=== PATIENT | male | born 2000 | race Caucasian/White ===

== ENCOUNTER 2023-10-16 01:07 | Emergency (ER) | payer SELFPAY ==
[2023-10-16 01:28] VITALS: RESP 16; TEMP 97.5
[2023-10-16] MEDS ORDERED: Sodium Chloride 0.9% 1000 ML 1,000 ML IV STA ×2 (01:34→02:50)
[2023-10-16] MEDS ORDERED: Zofran 4 MG/2 ML VIAL IV ONE (01:34)
--- NOTE | 2023-10-16 01:36 | ERPHSYRPT ---
- History of Present Illness Time Seen by Provider: 10/16/23 01:20 Patient Subjective Stated Complaint: pt states he has been having nausea, vomiting, and diarrhea, abd pain since 2199. Triage Nursing Assessment: pt alert and oriented, answers questions approp. pt ambulates into room with steady gait noted. respiraitons nonlabored. skin warm. abd soft, pt reports some tenderness with palpation. bowel sounds hypo x4. frequent vomiting during exam. Physician History: 22 years old male with past medical history of appendectomy, presenting to the emergency room complaining of abdominal pain nausea vomiting and diarrhea that started almost 3 hours prior to arrival to the emergency room. The patient states that he vomited many times, and he had couple of loose bowel movements. He is also having abdominal cramping. He is denying any fever or chills, no urinary symptoms. The patient is not aware of any bad food that he ate that could have triggered his symptoms. Allergies/Adverse Reactions: No Known Drug Allergies Allergy (Verified 10/16/23 01:28) Hx Tetanus, Diphtheria Vaccination/Date Given: Yes Hx Influenza Vaccination/Date Given: No Hx Pneumococcal Vaccination/Date Given: No Immunizations Up to Date: Yes Travel Risk - International Travel Have you traveled outside of the country in past 3 weeks: No - Coronavirus Screening Are you exhibiting any of the following symptoms?: Yes Symptoms: Vomiting/Diarrhea Close contact with a COVID-19 positive Pt in past 14-21 Days: Yes - Vaccine Status Have you recieved a Covid-19 vaccination: No - Review of Systems Constitutional: No Fever, No Chills Eyes: No Symptoms Ears, Nose, & Throat: No Symptoms Respiratory: No Cough, No Dyspnea Cardiac: No Chest Pain, No Edema, No Syncope Abdominal/Gastrointestinal: Abdominal Pain, Nausea, Vomiting, Diarrhea Genitourinary Symptoms: No Dysuria Musculoskeletal: No Back Pain, No Neck Pain Skin: No Rash Neurological: No Dizziness, No Focal Weakness, No Sensory Changes Psychological: No Symptoms Endocrine: No Symptoms All Other Systems: Reviewed and Negative - Past Medical History Pertinent Past Medical History: No ENT History: Other - Past Surgical History Past Surgical History: Yes Gastrointestinal: Appendectomy Musculoskeletal: Orthopedic Surgery Other Surgical History: l elbow - Social History Smoking Status: Former smoker Exposure to second hand smoke: Yes Drug Use: none Patient Lives Alone: No - Nursing Vital Signs Nursing Vital Signs: Initial Vital Signs Temperature 97.5 F 10/16/23 01:14 Pulse Rate 86 10/16/23 01:14 Respiratory Rate 16 10/16/23 01:14 Blood Pressure 156/87 10/16/23 01:14 O2 Sat by Pulse Oximetry 100 10/16/23 01:14 Pain Scale Pain Intensity 5 - Physical Exam General Appearance: no apparent distress, alert Eye Exam: PERRL/EOMI, eyes nml inspection Ears, Nose, Throat Exam: normal ENT inspection, pharynx normal, moist mucous membranes Neck Exam: normal inspection, non-tender, supple, full range of motion Respiratory Exam: normal breath sounds, lungs clear, No respiratory distress Cardiovascular Exam: regular rate/rhythm, normal heart sounds Gastrointestinal/Abdomen Exam: soft, tenderness, No distention, No mass, No guarding, No ecchymosis, No rebound Back Exam: normal inspection, normal range of motion, No CVA tenderness, No vertebral tenderness Extremity Exam: normal inspection, normal range of motion, pelvis stable Neurologic Exam: alert, oriented x 3, cooperative, normal mood/affect, nml cerebellar function, sensation nml, No motor deficits Skin Exam: normal color, warm, dry SpO2: 100 - Course Nursing assessment & vital signs reviewed: Yes Ordered Tests: Active Orders 24 hr Category Date Time Status IV Insertion STAT Care 10/16/23 01:34 Active ABDOMEN AND PELVIS W CONTRAST [CT] Stat Exams 10/16/23 02:11 Completed CBC W DIFF Stat Lab 10/16/23 01:52 Completed CMP Stat Lab 10/16/23 01:52 Completed LIPASE Stat Lab 10/16/23 01:52 Completed Lactic Acid Stat Lab 10/16/23 01:34 Completed Lactic Acid Stat Lab 10/16/23 03:59 Completed UA W/RFX UR CULTURE Stat Lab 10/16/23 03:34 Completed Medication Summary Discontinued Medications Generic Name Dose Route Start Last Admin Trade Name Freq PRN Reason Stop Dose Admin Ciprofloxacin 500 mg 10/16/23 03:50 10/16/23 04:02 Ciprofloxacin 500 Mg Tablet PO 10/16/23 03:51 500 mg ONCE STA Administration Ciprofloxacin Confirm 10/16/23 03:59 Ciprofloxacin 500 Mg Tablet Administered 10/16/23 04:00 Dose 500 mg .ROUTE .STK-MED ONE Sodium Chloride 1,000 mls @ 999 mls/hr 10/16/23 01:34 10/16/23 03:43 Sodium Chloride 0.9% 1000 Ml IV 10/16/23 02:34 Infused .Q1H1M STA Infusion Sodium Chloride Confirm 10/16/23 01:51 Sodium Chloride 0.9% 1000 Ml Administered 10/16/23 01:52 Dose 1,000 mls @ ud .ROUTE .STK-MED ONE Sodium Chloride Confirm 10/16/23 02:48 Sodium Chloride 0.9% 1000 Ml Administered 10/16/23 02:49 Dose 1,000 mls @ ud .ROUTE .STK-MED ONE Sodium Chloride 1,000 mls @ 999 mls/hr 10/16/23 02:50 10/16/23 02:52 Sodium Chloride 0.9% 1000 Ml IV 10/16/23 03:50 999 mls/hr .Q1H1M STA Administration Metoclopramide HCl 10 mg 10/16/23 02:47 10/16/23 02:52 Metoclopramide Hcl 10 Mg/2 Ml Vial IV 10/16/23 02:48 10 mg STAT ONE Administration Metoclopramide HCl Confirm 10/16/23 02:48 Metoclopramide Hcl 10 Mg/2 Ml Vial Administered 10/16/23 02:49 Dose 10 mg .ROUTE .STK-MED ONE Morphine Sulfate 4 mg 10/16/23 02:09 10/16/23 02:12 Morphine Sulfate 4 Mg/Ml Injection IV 10/16/23 02:10 4 mg STAT ONE Administration Morphine Sulfate Confirm 10/16/23 02:11 Morphine Sulfate 4 Mg/Ml Injection Administered 10/16/23 02:12 Dose 4 mg .ROUTE .STK-MED ONE Ondansetron HCl 4 mg 10/16/23 01:34 10/16/23 01:55 Ondansetron Hcl 4 Mg/2 Ml Vial IV 10/16/23 01:35 4 mg STAT ONE Administration Ondansetron HCl Confirm 10/16/23 01:51 Ondansetron Hcl 4 Mg/2 Ml Vial Administered 10/16/23 01:52 Dose 4 mg .ROUTE .STK-MED ONE Lab/Rad Data: Laboratory Result Diagrams 10/16/23 01:52 10/16/23 01:52 Laboratory Results 10/16/23 10/16/23 10/16/23 Range/Units 03:59 03:34 02:15 WBC (4.0-10.5) x10^3/uL RBC (4.1-5.6) x10^6/uL Hgb (12.5-18.0) g/dL Hct (42-50) % MCV (78-100) fL MCH (26-32) pg MCHC (32-36) g/dL RDW (11.5-14.0) % Plt Count (150-450) x10^3/uL MPV (7.5-11.0) fL Gran % (36.0-66.0) % Immature Gran % (Auto) (0.00-0.4) % Nucleat RBC Rel Count (0.00-0.1) % Eos # (Auto) (0-0.5) x10^3/uL Immature Gran # (Auto) (0.00-0.03) x10^3u/L Absolute Lymphs (auto) (1.0-4.6) x10^3/uL Absolute Monos (auto) (0.0-1.3) x10^3/uL Absolute Nucleated RBC (0.00-0.01) x10^3u/L Lymphocytes % (24.0-44.0) % Monocytes % (0.0-12.0) % Eosinophils % (0.00-5.0) % Basophils % (0.0-0.4) % Absolute Granulocytes (1.4-6.9) x10^3/uL Basophils # (0-0.4) x10^3/uL Sodium (137-145) mmol/L Potassium (3.5-5.1) mmol/L Chloride (98-107) mmol/L Carbon Dioxide (22-30) mmol/L Anion Gap (5-15) MEQ/L BUN (9-20) mg/dL Creatinine (0.66-1.25) mg/dL Estimated GFR ML/MIN Glucose (74-106) mg/dL Lactic Acid 0.7 (0.4-2.0) Calcium (8.4-10.2) mg/dL Total Bilirubin (0.2-1.3) mg/dL AST (17-59) U/L ALT (0-50) U/L Alkaline Phosphatase (38-126) U/L Serum Total Protein (6.3-8.2) g/dL Albumin (3.5-5.0) g/dL Lipase (23-300) U/L Urine Color Yellow (Yellow) Urine Appearance Clear (Clear) Urine pH 6.5 (4.6-8.0) Ur Specific [place] >=1.030 A (1.005-1.030) Urine Protein Negative (Negative) Urine Glucose (UA) 100 A (Negative) mg/dL Urine Ketones >=160 A (Negative) Urine Blood Negative (Negative) Urine Nitrite Negative (Negative) Urine Bilirubin Negative (Negative) Urine Urobilinogen 1.0 A (0.2) mg/dL Ur Leukocyte Esterase Negative (Negative) U Hyaline Cast (Auto) NONE SEEN (0-2) /LPF Urine Microscopic RBC 0-2 (0-5) /HPF Urine Microscopic WBC 0-2 (0-5) /HPF Ur Epithelial Cells None Seen (None Seen) /HPF Urine Bacteria None Seen (None Seen) /HPF Urine Culture Reflexed NO (NO) Influenza Type A Ag NEGATIVE (NEGATIVE) Influenza Type B Ag NEGATIVE (NEGATIVE) RSV (PCR) NEGATIVE (NEGATIVE) SARS-CoV-2 (PCR) NEGATIVE (NEGATIVE) 10/16/23 10/16/23 10/16/23 Range/Units 01:52 01:52 01:34 WBC 17.6 H (4.0-10.5) x10^3/uL RBC 4.35 (4.1-5.6) x10^6/uL Hgb 13.9 (12.5-18.0) g/dL Hct 39.9 L (42-50) % MCV 91.7 (78-100) fL MCH 32.0 (26-32) pg MCHC 34.8 (32-36) g/dL RDW 12.1 (11.5-14.0) % Plt Count 251 (150-450) x10^3/uL MPV 11.0 (7.5-11.0) fL Gran % 91.6 H (36.0-66.0) % Immature Gran % (Auto) 0.3 (0.00-0.4) % Nucleat RBC Rel Count 0.0 (0.00-0.1) % Eos # (Auto) 0.03 (0-0.5) x10^3/uL Immature Gran # (Auto) 0.06 H (0.00-0.03) x10^3u/L Absolute Lymphs (auto) 0.65 L (1.0-4.6) x10^3/uL Absolute Monos (auto) 0.70 (0.0-1.3) x10^3/uL Absolute Nucleated RBC 0.00 (0.00-0.01) x10^3u/L Lymphocytes % 3.7 L (24.0-44.0) % Monocytes % 4.0 (0.0-12.0) % Eosinophils % 0.2 (0.00-5.0) % Basophils % 0.2 (0.0-0.4) % Absolute Granulocytes 16.09 H (1.4-6.9) x10^3/uL Basophils # 0.03 (0-0.4) x10^3/uL Sodium 135 L (137-145) mmol/L Potassium 3.6 (3.5-5.1) mmol/L Chloride 101 (98-107) mmol/L Carbon Dioxide 19 L (22-30) mmol/L Anion Gap 18.9 H (5-15) MEQ/L BUN 20 (9-20) mg/dL Creatinine 0.98 (0.66-1.25) mg/dL Estimated GFR 111.8 ML/MIN Glucose 181 H (74-106) mg/dL Lactic Acid 2.7 H (0.4-2.0) Calcium 9.8 (8.4-10.2) mg/dL Total Bilirubin 2.40 H (0.2-1.3) mg/dL AST 31 (17-59) U/L ALT 22 (0-50) U/L Alkaline Phosphatase 89 (38-126) U/L Serum Total Protein 8.3 H (6.3-8.2) g/dL Albumin 5.0 (3.5-5.0) g/dL Lipase 65 (23-300) U/L Urine Color (Yellow) Urine Appearance (Clear) Urine pH (4.6-8.0) Ur Specific [place] (1.005-1.030) Urine Protein (Negative) Urine Glucose (UA) (Negative) mg/dL Urine Ketones (Negative) Urine Blood (Negative) Urine Nitrite (Negative) Urine Bilirubin (Negative) Urine Urobilinogen (0.2) mg/dL Ur Leukocyte Esterase (Negative) U Hyaline Cast (Auto) (0-2) /LPF Urine Microscopic RBC (0-5) /HPF Urine Microscopic WBC (0-5) /HPF Ur Epithelial Cells (None Seen) /HPF Urine Bacteria (None Seen) /HPF Urine Culture Reflexed (NO) Influenza Type A Ag (NEGATIVE) Influenza Type B Ag (NEGATIVE) RSV (PCR) (NEGATIVE) SARS-CoV-2 (PCR) (NEGATIVE) - Progress Progress Note: 10/16/23 01:20 22 years old male with no past medical history presenting to the emergency room complaining of abdominal pain nausea vomiting and diarrhea that started almost 3 hours prior to arrival to the emergency room. The patient states that he vomited many times and he had couple of loose bowel movements. He is also having abdominal cramping. He is denying any fever or chills, no urinary symptoms. The patient is not aware of any bad food that he ate that could have triggered his symptoms. Emergency room course and medical decision making The patient was treated with IV fluid 0.9 saline x 1 L, Zofran 4 mg IV. Check CBC, CMP, lipase, lactic acid, urinalysis. 10/16/23 02:13 The patient is complaining of severe abdominal pain he will be given morphine sulfate 4 mg IV. His workup revealed elevated white count 17.6 with left shift. Hemoglobin 14 hematocrit 40. His BUN 20, creatinine 0.98, glucose 181, anion gap 19, lactic acid elevated at 2.7. Total bilirubin at 2.4 normal AST and ALT, 31/22 respectively. Normal lipase. Continue IV fluid hydration, order CT scan abdomen pelvis with IV contrast. 10/16/23 03:45 The patient is feeling much better he already received 2 bags of IV fluid. Both influenza A/B COVID-[address] scan of the abdomen and pelvis demonstrated enterocolitis. The patient is feeling thirsty wanting something to drink his abdominal pain is completely resolved. He has not vomited for at least 2 hours. He believes that his symptoms could be secondary to food poisoning. He will be given 1 oral dose Cipro 500 mg. 10-16-2023 4:30 AM No vomiting or diarrhea the patient is feeling better, wanting to go home. Lactic acid is down to 0.7/normal He will be discharged home accompanied by his girlfriend who is at bedside. Cipro 500 mg twice a day for 3 days Zofran 4 mg ODT as needed for nausea and or vomiting. Brat diet Follow-up with his family physician 2 to 3 days and follow-up as needed for any worsening symptoms. - Departure Departure Disposition: Home Clinical Impression: Abdominal pain in male, Vomiting, Enterocolitis Condition: Stable Critical Care Time: No Referrals: DOCTOR,NO FAMILY [Primary Care Provider] - Follow up/PCP as directed Instructions: Severe Abdominal Pain, Adult (DC), Nausea and Vomiting, Adult (DC), Colitis (DC) Additional Instructions: Rest, increase fluid intake. Follow-up with the family physician in 2 days. Follow-up as needed for any worsening symptoms. Avoid greasy food or dairy products, brat diet for 2 days advance as tolerated. Cipro 500 mg twice a day for 3 days Zofran ODT as needed for nausea or vomiting. Prescriptions: Ondansetron ODT 4 MG [Zofran Odt 4 mg] 4 mg PO Q6H PRN PRN #10 tablet PRN Reason: Vomiting Ciprofloxacin [Cipro 500 MG] 500 mg PO BID 3 Days tablet Ciprofloxacin [Cipro 500 MG] 500 mg PO BID #6 tablet
[2023-10-16] MEDS ORDERED: Zofran 4 MG/2 ML VIAL ONE (01:51)
[2023-10-16] MEDS ORDERED: Sodium Chloride 0.9% 1000 ML 1,000 ML ONE ×2 (01:51→02:48)
[2023-10-16 01:54] LABS: Hematocrit 39.9 % (42-50); Hemoglobin 13.9 g/dL (12.5-18.0); Mean Cell Volume 91.7 fL (78-100); Mean Corpuscular Hgb Concent. 34.8 g/dL (32-36); Platelet Count 251 x10^3/uL (150-450); Red Blood Count 4.35 x10^6/uL (4.1-5.6); Red Cell Distribution Width 12.1 % (11.5-14.0); White Blood Count 17.6 x10^3/uL (4.0-10.5)
[2023-10-16 01:55] LABS: Absolute Neutrophil Ct (ANC) 16.09 x10^3/uL (1.4-6.9); BASOPHIL % 0.2 % (0.0-0.4); Basophil (Absolute #) 0.03 x10^3/uL (0-0.4); Eosinophil % 0.2 % (0.00-5.0); Eosinophil (Absolute #) 0.03 x10^3/uL (0-0.5); IMMATURE GRAN # 0.06 x10^3u/L (0.00-0.03); IMMATURE GRAN % 0.3 % (0.00-0.4); Lymphocyte (Absolute #) 0.65 x10^3/uL (1.0-4.6); Lymphocytes % 3.7 % (24.0-44.0); Neutrophil % 91.6 % (36.0-66.0)
[2023-10-16 02:07] LABS: ANION GAP 18.9 MEQ/L (5-15); BILIRUBIN,TOTAL 2.4 mg/dL (0.2-1.3); Calcium 9.8 mg/dL (8.4-10.2); Creatinine 1 0.98 mg/dL (0.66-1.25); EST GLOMERULAR FILTRATION RATE 111.8 ML/MIN; Potassium 3.6 mmol/L (3.5-5.1); Total Protein 8.3 g/dL (6.3-8.2)
[2023-10-16] MEDS ORDERED: MORPHINE SULFATE 4 MG INJ IV ONE (02:09)
[2023-10-16] MEDS ORDERED: MORPHINE SULFATE 4 MG INJ ONE (02:11)
[2023-10-16] MEDS ORDERED: Reglan 10 MG/2 ML IV ONE ×2 (02:46→02:47)
[2023-10-16] MEDS ORDERED: Reglan 10 MG/2 ML ONE (02:48)
[2023-10-16 02:56] LABS: INFLUENZA A NEGATIVE (NEGATIVE); INFLUENZA B NEGATIVE (NEGATIVE); RESPIRATORY SYNCTIAL VIRUS NEGATIVE (NEGATIVE); SARS-CoV-2 Xpert Express NEGATIVE (NEGATIVE)
--- NOTE | 2023-10-16 03:35 | XRAY ---
CLINICAL HISTORY: Abdominal pain TECHNIQUE: Multiple contiguous axial images were obtained from the level of diaphragm to the pubis symphysis. This study was acquired after the IV administration of iodinated contrast material, given the patients indications for the examination. If IV contrast material had not been administered, the likelihood of detecting abnormalities relevant to the patients condition would have been substantially decreased. Coronal and sagittal reformatted images were generated and reviewed to improve anatomic localization and optimize lesion detection. CT scan was performed according to ALARA (as low as reasonable achievable). COMPARISON: None FINDINGS: The visualized lung bases are clear. ABDOMEN/PELVIS: The liver is normal in size and attenuation. No focal liver lesions are seen. There is no intra or extrahepatic biliary ductal dilatation. Hepatic vasculature is patent. The gallbladder is unremarkable. The spleen, pancreas, and adrenal glands are unremarkable. The kidneys are normal in size and attenuation. There is no hydronephrosis or perinephric fat stranding. No renal calculi or renal masses are identified. The ureters are normal in caliber and no ureteral calculi are seen. The bladder is normal in contour. Fluid filled prominent distal jejunal and proximal ileal loops are noted with mild wall thickening. There is mild wall thickening versus underdistention of the transverse colon including hepatic flexure and descending colon. The appendix is not definitely visualized. No adenopathy or fluid collections are seen. The aorta is normal in caliber. No aggressive appearing osseous lesions are identified. IMPRESSION: 1. Fluid filled prominent distal jejunal and proximal ileal loops noetd with mild wall thickening. Mild wall thickening versus underdistention of the transverse and descending colon. Findings suggstive of enterocolitis. Recommend clinical correlation and follow up. Electronically Signed by: Dr. Josias Wren MD. (10/16/2023 03:31:37 EST)
[2023-10-16 03:42] LABS: Appearance Clear (Clear); Bacteria None Seen /HPF (None Seen); Bilirubin Negative (Negative); Blood Negative (Negative); Epithelial Cells None Seen /HPF (None Seen); Glucose, Urine 100 mg/dL (Negative); Hyaline Casts NONE SEEN /LPF (0-2); Ketones >=160 (Negative); Leukocyte Esterase Negative (Negative); Nitrite Negative (Negative); Ph 6.5 (4.6-8.0); Protein,Urine Dip Negative (Negative); RBC 0-2 /HPF (0-5); Specific Gravity >=1.030 (1.005-1.030); WBC 0-2 /HPF (0-5)
[2023-10-16 03:45] LABS: ADD URINE CULTURE? NO (NO)
[2023-10-16] MEDS ORDERED: Cipro 500 MG PO STA (03:50)
[2023-10-16] MEDS ORDERED: Cipro 500 MG ONE (03:59)
[2023-10-16 04:58] VITALS: BP 153/85; PULSE 65
[2023-10-16 05:01] VITALS: O2SAT 100
== END 2023-10-16 04:54 | disposition home or self-care (01) ==
LOC: ED 01:07
DX: K52.9 Noninfective gastroenteritis and colitis, unspecified (principal); R11.2 Nausea with vomiting, unspecified; R10.9 Unspecified abdominal pain; Z28.310 Unvaccinated for COVID-19
CPT/HCPCS: 0241U; 36000; 36415; 74177; 80053; 81001; 83605; 83690; 85025; 96374; 96375; 99284; J2270; J2405; A9270-GY